=== PATIENT | male | born 1970 | race Caucasian/White ===

== ENCOUNTER 2021-09-14 06:01 | Inpatient (IN) ==
[2021-09-07 09:39] LABS: Basophils % 0.9 % (0.0-0.8); Eosinophils # 0.1 10*3/uL (0.0-0.87); Eosinophils % 2.1 % (0.00-10.9); Hematocrit 38.9 VOL% (42.0-52.0); Hemoglobin 13.5 GM/DL (14.0-18.0); Immature Granulocytes % 0.7 %; Immature Granulocytes Absolute 0.03 #; Lymphocytes # 0.8 10*3/uL (1.4-4.0); Lymphocytes % 18.5 % (21.2-54.2); Mean Corpuscular HGB Conc 34.7 GM/DL (32-36); Mean Corpuscular Volume 91.5 FL (87-102); Mean Platelet Volume 9.2 FL (9.6-12.0); Monocytes # 0.4 10*3/uL (0.11-0.8); Monocytes % 8.7 % (1.7-12.7); Neutrophils % 69.1 % (38.7-73.9); Platelet Count 235 T/CUMM (130-400); Red Blood Count 4.25 MC/CUMM (3.8-5.5); White Blood Count 4.4 T/CUMM (4-12)
[2021-09-07 10:01] LABS: Calcium 8.7 MG/DL (8.5-10.1); Osmolality,Calculated 280.3 MOS/KG (273-304); Potassium 4.1 MMOL/L (3.5-5.1)
[~2021-09-14 06:01] MED LIST: ALVIMOPAN 12 MG CAPSULE PO ONE; ERTAPENEM 1,000 MG in SODIUM CHLORIDE 0.9% 100 ML IV ONE
[2021-09-14] MEDS ORDERED: MIDAZOLAM 2 MG/2 ML VIAL ONE ×2 (06:24→06:28)
[2021-09-14] MEDS ORDERED: fentaNYL 100 MCG/2 ML VIAL ONE ×3 (06:25→10:35)
[2021-09-14] MEDS ORDERED: FAMOTIDINE 20 MG TABLET PO ONE (06:26)
[2021-09-14] MEDS ORDERED: ACETAMINOPHEN 500 MG TABLET PO ONE (06:26)
[2021-09-14] MEDS ORDERED: DIAZEPAM 5 MG TABLET PO ONE (06:26)
[2021-09-14] MEDS ORDERED: GABAPENTIN 400 MG CAPSULE PO ONE (06:26)
[2021-09-14] MEDS ORDERED: LIDOCAINE 2% 5 ML VIAL ONE (06:28)
[2021-09-14] MEDS ORDERED: ROCURONIUM 50 MG/5 ML VIAL IV ONE ×2 (06:28→08:16)
[2021-09-14] MEDS ORDERED: propofoL 200 MG/20 ML VIAL IV ONE (06:28)
[2021-09-14] MEDS ORDERED: LACTATED RINGERS 1,000 ML IV SCH (06:30)
[2021-09-14] MEDS ORDERED: LIDOCAINE 1%/EPI INJ 20 ML VIAL ONE (06:44)
[2021-09-14] MEDS ORDERED: INDOCYANINE GREEN 25 MG VIAL IV ONE (06:44)
[2021-09-14] MEDS ORDERED: BUPIVACAINE MPF 0.25% 10 ML VIAL ONE (06:44)
[2021-09-14] MEDS ORDERED: TISSUE ADHESIVE 1 EACH APPLICATOR TOP ONE (06:44)
[2021-09-14] MEDS ORDERED: SEVOFLURANE 1 UNIT/15 MINUTE INH ONE ×15 (07:13→11:15)
[2021-09-14] MEDS ORDERED: DEXAMETHASONE 4 MG/1 ML VIAL ONE (08:17)
[2021-09-14] MEDS ORDERED: ONDANSETRON 4 MG/2 ML VIAL ONE (08:17)
[2021-09-14] MEDS ORDERED: LACTATED RINGERS 1,000 ML IV ONE (08:26)
[2021-09-14] MEDS ORDERED: SUGAMMADEX 200 MG/2 ML VIAL IV ONE (10:01)
[2021-09-14 10:31] LABS: RBC,Urine 211 /HPF (0-4)
[2021-09-14 10:32] LABS: Bilirubin,Urine Negative (Negative); Blood, Urine Large mg/dL (Negative); Glucose,Urine (UA) Negative (Negative); Ketones,Urine Negative (Negative); Nitrite,Urine Negative (Negative); Protein,Urine Negative (Negative); Urine Appearance Clear (Clear); Urine Color LT. BLUE (Yellow); Urine Urobilinogen 0.2 eU/dL (<2.0); Urine pH 5.5 (4.5-8.0)
[2021-09-14] MEDS ORDERED: HYDROmorphone 1 MG/1 ML SYRINGE IV PRN ×2 (11:30→12:29)
[2021-09-14] MEDS ORDERED: ONDANSETRON 4 MG/2 ML VIAL IV PRN ×2 (11:32→12:29)
[2021-09-14 13:09] LABS: Basophils % 0.1 % (0.0-0.8); Eosinophils % 0.1 % (0.00-10.9); Hematocrit 38.3 VOL% (42.0-52.0); Hemoglobin 12.9 GM/DL (14.0-18.0); Immature Granulocytes % 0.7 %; Lymphocytes # 0.5 10*3/uL (1.4-4.0); Lymphocytes % 3.7 % (21.2-54.2); Mean Corpuscular HGB Conc 33.7 GM/DL (32-36); Mean Corpuscular Volume 93.6 FL (87-102); Mean Platelet Volume 9.3 FL (9.6-12.0); Monocytes # 0.4 10*3/uL (0.11-0.8); Monocytes % 2.6 % (1.7-12.7); Neutrophils % 92.8 % (38.7-73.9); Platelet Count 238 T/CUMM (130-400); Red Blood Count 4.09 MC/CUMM (3.8-5.5); Red Cell Distribution Width 14.6 % (9.3-17.3); White Blood Count 13.6 T/CUMM (4-12)
[2021-09-14 13:22] LABS: Calcium 8.4 MG/DL (8.5-10.1); Potassium 3.8 MMOL/L (3.5-5.1)
[2021-09-14] MEDS: LACTATED RINGERS 1,000 ML IV SCH ×2 (13:46→20:30)
[2021-09-14] MEDS: KETOROLAC 30 MG/1 ML VIAL IV SCH ×2 (13:46→18:32)
[2021-09-14 14:09] LABS: Platelet Estimate Normal; Polychromasia Slight; Total Cells Counted 100
[2021-09-14] MEDS: ALVIMOPAN 12 MG CAPSULE PO SCH (20:30)
[2021-09-15] MEDS: KETOROLAC 30 MG/1 ML VIAL IV SCH ×3 (00:25→14:07)
[2021-09-15 05:23] LABS: Basophils % 0.2 % (0.0-0.8); Eosinophils % 0.2 % (0.00-10.9); Hematocrit 35.2 VOL% (42.0-52.0); Hemoglobin 11.8 GM/DL (14.0-18.0); Immature Granulocytes % 0.4 %; Immature Granulocytes Absolute 0.03 #; Lymphocytes # 0.9 10*3/uL (1.4-4.0); Lymphocytes % 10.4 % (21.2-54.2); Mean Corpuscular HGB Conc 33.5 GM/DL (32-36); Mean Corpuscular Volume 93.4 FL (87-102); Mean Platelet Volume 9.3 FL (9.6-12.0); Monocytes # 0.7 10*3/uL (0.11-0.8); Monocytes % 7.6 % (1.7-12.7); Neutrophils % 81.2 % (38.7-73.9); Platelet Count 222 T/CUMM (130-400); Red Blood Count 3.77 MC/CUMM (3.8-5.5); Red Cell Distribution Width 14.5 % (9.3-17.3); White Blood Count 8.6 T/CUMM (4-12)
[2021-09-15 05:44] LABS: Calcium 8.3 MG/DL (8.5-10.1); Osmolality,Calculated 273.7 MOS/KG (273-304); Potassium 3.9 MMOL/L (3.5-5.1)
[2021-09-15] MEDS: LACTATED RINGERS 1,000 ML IV SCH (06:05)
[2021-09-15] MEDS ORDERED: ENOXAPARIN 40 MG/0.4 ML SYRINGE SUBCUT SCH (09:00)
[2021-09-15] MEDS: ALVIMOPAN 12 MG CAPSULE PO SCH (09:20)
[2021-09-15 14:30] VITALS: BP 129/70
== END 2021-09-15 15:29 | disposition home or self-care (01) | DRG 330 ==
LOC: N.OR 06:01 → N.SDSINP 06:03 → N.3E 12:39
PROVIDERS: ADMIT Surgery; ATTEND Surgery

== ENCOUNTER 2021-12-21 05:53 | Inpatient (IN) ==
[2021-12-17 12:40] LABS: Basophils # 0.1 10*3/uL (0.0-0.2); Basophils % 0.9 % (0.0-0.8); Eosinophils # 0.2 10*3/uL (0.0-0.87); Eosinophils % 2.6 % (0.00-10.9); Hematocrit 42.2 VOL% (42.0-52.0); Immature Granulocytes % 0.5 %; Immature Granulocytes Absolute 0.03 #; Lymphocytes # 1.2 10*3/uL (1.4-4.0); Lymphocytes % 21.5 % (21.2-54.2); Mean Corpuscular HGB Conc 33.2 GM/DL (32-36); Mean Corpuscular Volume 90.6 FL (87-102); Mean Platelet Volume 9.7 FL (9.6-12.0); Monocytes # 0.5 10*3/uL (0.11-0.8); Monocytes % 9.5 % (1.7-12.7); Platelet Count 286 T/CUMM (130-400); Red Blood Count 4.66 MC/CUMM (3.8-5.5); Red Cell Distribution Width 13.4 % (9.3-17.3); White Blood Count 5.7 T/CUMM (4-12)
[2021-12-17 13:02] LABS: Calcium 8.8 MG/DL (8.5-10.1); Osmolality,Calculated 280.3 MOS/KG (273-304); Potassium 4.7 MMOL/L (3.5-5.1)
[2021-12-21] MEDS ORDERED: CLINDAMYCIN INJ 600 MG/50 ML PREMIX IV ONE (06:00)
[2021-12-21] MEDS ORDERED: GABAPENTIN 400 MG CAPSULE PO ONE (06:38)
[2021-12-21] MEDS ORDERED: ACETAMINOPHEN 500 MG TABLET PO ONE (06:38)
[2021-12-21] MEDS ORDERED: FAMOTIDINE 20 MG TABLET PO ONE (06:38)
[2021-12-21] MEDS ORDERED: DIAZEPAM 5 MG TABLET PO ONE (06:38)
[2021-12-21] MEDS: LACTATED RINGERS 1,000 ML IV SCH ×5 (07:23→18:04)
[2021-12-21] MEDS ORDERED: LIDOCAINE 2% 5 ML VIAL ONE (08:02)
[2021-12-21] MEDS ORDERED: ONDANSETRON 4 MG/2 ML VIAL ONE (08:02)
[2021-12-21] MEDS ORDERED: ROCURONIUM 50 MG/5 ML VIAL IV ONE (08:02)
[2021-12-21] MEDS ORDERED: MIDAZOLAM 2 MG/2 ML VIAL ONE (08:02)
[2021-12-21] MEDS ORDERED: SEVOFLURANE 1 UNIT/15 MINUTE INH ONE ×3 (08:02→09:02)
[2021-12-21] MEDS ORDERED: propofoL 200 MG/20 ML VIAL IV ONE (08:02)
[2021-12-21] MEDS ORDERED: fentaNYL 100 MCG/2 ML VIAL ONE ×2 (08:02→08:55)
[2021-12-21] MEDS ORDERED: SODIUM CHLORIDE 0.9% 100 ML IV ONE (08:22)
[2021-12-21] MEDS ORDERED: PHENYLEPHRINE 10 MG/1 ML VIAL IV ONE (08:22)
[2021-12-21] MEDS ORDERED: LACTATED RINGERS 1,000 ML IV ONE (09:02)
[2021-12-21] MEDS ORDERED: SUGAMMADEX 200 MG/2 ML VIAL IV ONE (09:04)
[2021-12-21] MEDS ORDERED: DEXAMETHASONE 4 MG/1 ML VIAL ONE (09:22)
[2021-12-21] MEDS ORDERED: LIDOCAINE 100 MG/5 ML SYRINGE ONE (09:22)
[2021-12-21] MEDS ORDERED: ROPIVACAINE 0.5% 30 ML VIAL ONE (09:23)
[2021-12-21] MEDS ORDERED: ONDANSETRON 4 MG/2 ML VIAL IV PRN (10:41)
[2021-12-21] MEDS ORDERED: HYDROmorphone 1 MG/1 ML SYRINGE IV PRN (10:41)
[2021-12-21] MEDS ORDERED: PROMETHAZINE 25 MG/1 ML VIAL IM PRN (10:41)
[2021-12-21 11:00] LABS: Basophils # 0.1 10*3/uL (0.0-0.2); Basophils % 0.5 % (0.0-0.8); Eosinophils # 0.2 10*3/uL (0.0-0.87); Eosinophils % 1.9 % (0.00-10.9); Hematocrit 38.4 VOL% (42.0-52.0); Hemoglobin 13.1 GM/DL (14.0-18.0); Immature Granulocytes Absolute 0.09 #; Lymphocytes # 1.4 10*3/uL (1.4-4.0); Lymphocytes % 14.7 % (21.2-54.2); Mean Corpuscular HGB Conc 34.1 GM/DL (32-36); Mean Corpuscular Volume 88.3 FL (87-102); Mean Platelet Volume 8.8 FL (9.6-12.0); Monocytes # 0.6 10*3/uL (0.11-0.8); Monocytes % 6.1 % (1.7-12.7); Neutrophils % 75.8 % (38.7-73.9); Platelet Count 265 T/CUMM (130-400); Red Blood Count 4.35 MC/CUMM (3.8-5.5); Red Cell Distribution Width 13.2 % (9.3-17.3); White Blood Count 9.2 T/CUMM (4-12)
[2021-12-21] MEDS: KETOROLAC 15 MG/1 ML VIAL IV SCH ×3 (11:07→23:26)
[2021-12-21 11:19] LABS: Calcium 8.3 MG/DL (8.5-10.1); Osmolality,Calculated 281.4 MOS/KG (273-304); Potassium 3.7 MMOL/L (3.5-5.1)
[2021-12-22] MEDS: LACTATED RINGERS 1,000 ML IV SCH ×5 (00:45→19:30)
[2021-12-22 05:07] LABS: Basophils % 0.2 % (0.0-0.8); Eosinophils % 0.1 % (0.00-10.9); Hematocrit 34.5 VOL% (42.0-52.0); Hemoglobin 11.9 GM/DL (14.0-18.0); Immature Granulocytes % 0.5 %; Immature Granulocytes Absolute 0.07 #; Lymphocytes # 0.9 10*3/uL (1.4-4.0); Lymphocytes % 6.8 % (21.2-54.2); Mean Corpuscular HGB Conc 34.5 GM/DL (32-36); Mean Corpuscular Volume 88.9 FL (87-102); Mean Platelet Volume 9.3 FL (9.6-12.0); Monocytes # 0.8 10*3/uL (0.11-0.8); Monocytes % 6.1 % (1.7-12.7); Neutrophils % 86.3 % (38.7-73.9); Platelet Count 244 T/CUMM (130-400); Red Blood Count 3.88 MC/CUMM (3.8-5.5); Red Cell Distribution Width 13.2 % (9.3-17.3); White Blood Count 13.3 T/CUMM (4-12)
[2021-12-22 05:27] LABS: Calcium 8.7 MG/DL (8.5-10.1); Osmolality,Calculated 277.5 MOS/KG (273-304); Potassium 4.2 MMOL/L (3.5-5.1)
[2021-12-22] MEDS: KETOROLAC 15 MG/1 ML VIAL IV SCH ×4 (05:39→23:02)
[2021-12-22] MEDS: ENOXAPARIN 40 MG/0.4 ML SYRINGE SUBCUT SCH (05:39)
[2021-12-22] MEDS ORDERED: SIMETHICONE CHEW 80 MG TABLET PO PRN (08:36)
[2021-12-22 17:25] LABS: Hematocrit 34.7 VOL% (42.0-52.0); Hemoglobin 11.6 GM/DL (14.0-18.0)
[2021-12-22] MEDS ORDERED: ACETAMINOPHEN 325 MG/10.15 ML UDCUP PO PRN (18:39)
[2021-12-22] MEDS ORDERED: ACETAMINOPHEN 325 MG TABLET PO PRN (18:47)
[2021-12-23] MEDS: LACTATED RINGERS 1,000 ML IV SCH (05:10)
[2021-12-23] MEDS: KETOROLAC 15 MG/1 ML VIAL IV SCH ×4 (05:11→22:01)
[2021-12-23] MEDS: ENOXAPARIN 40 MG/0.4 ML SYRINGE SUBCUT SCH (05:11)
[2021-12-23 09:18] LABS: Basophils % 0.3 % (0.0-0.8); Eosinophils # 0.1 10*3/uL (0.0-0.87); Eosinophils % 0.7 % (0.00-10.9); Hematocrit 36.8 VOL% (42.0-52.0); Hemoglobin 12.2 GM/DL (14.0-18.0); Immature Granulocytes % 0.3 %; Immature Granulocytes Absolute 0.03 #; Lymphocytes # 0.9 10*3/uL (1.4-4.0); Lymphocytes % 8.7 % (21.2-54.2); Mean Corpuscular HGB Conc 33.2 GM/DL (32-36); Mean Corpuscular Volume 90.2 FL (87-102); Monocytes # 1.1 10*3/uL (0.11-0.8); Monocytes % 10.8 % (1.7-12.7); Neutrophils % 79.2 % (38.7-73.9); Platelet Count 254 T/CUMM (130-400); Red Blood Count 4.08 MC/CUMM (3.8-5.5); Red Cell Distribution Width 13.6 % (9.3-17.3); White Blood Count 10.2 T/CUMM (4-12)
[2021-12-23 09:32] LABS: Calcium 8.6 MG/DL (8.5-10.1); Osmolality,Calculated 275.7 MOS/KG (273-304); Potassium 3.6 MMOL/L (3.5-5.1)
[2021-12-23 09:45] LABS: Band Neutrophils 7 % (0-10); Lymphocytes 9 % (20-55); Platelet Estimate Adequate; Total Cells Counted 100
[2021-12-23] MEDS ORDERED: ZOLPIDEM 5 MG TABLET PO ONE (21:18)
[2021-12-24 04:53] LABS: Basophils % 0.3 % (0.0-0.8); Eosinophils # 0.1 10*3/uL (0.0-0.87); Eosinophils % 1.1 % (0.00-10.9); Hematocrit 39.1 VOL% (42.0-52.0); Hemoglobin 13.2 GM/DL (14.0-18.0); Immature Granulocytes % 0.5 %; Immature Granulocytes Absolute 0.05 #; Lymphocytes # 1.1 10*3/uL (1.4-4.0); Lymphocytes % 12.5 % (21.2-54.2); Mean Corpuscular HGB Conc 33.8 GM/DL (32-36); Mean Corpuscular Volume 88.3 FL (87-102); Mean Platelet Volume 9.5 FL (9.6-12.0); Monocytes # 1.2 10*3/uL (0.11-0.8); Monocytes % 13.1 % (1.7-12.7); Neutrophils % 72.5 % (38.7-73.9); Platelet Count 308 T/CUMM (130-400); Red Blood Count 4.43 MC/CUMM (3.8-5.5); Red Cell Distribution Width 13.3 % (9.3-17.3); White Blood Count 9.1 T/CUMM (4-12)
[2021-12-24 05:24] LABS: Calcium 8.9 MG/DL (8.5-10.1); Potassium 3.4 MMOL/L (3.5-5.1)
[2021-12-24 05:41] LABS: Band Neutrophils 8 % (0-10); Eosinophils 2 % (0-10); Lymphocytes 9 % (20-55); Microcytosis Slight; Platelet Estimate Normal; Total Cells Counted 100
[2021-12-24] MEDS: ENOXAPARIN 40 MG/0.4 ML SYRINGE SUBCUT SCH (06:15)
[2021-12-24] MEDS: KETOROLAC 15 MG/1 ML VIAL IV SCH (06:18)
[2021-12-24] MEDS: DEXT 5% NACL 0.45% KCL 40 MEQ 40 MEQ/1,000 ML BAG IV SCH (15:18)
[2021-12-24] MEDS ORDERED: ZOLPIDEM 5 MG TABLET PO ONE (23:23)
[2021-12-25] MEDS: ENOXAPARIN 40 MG/0.4 ML SYRINGE SUBCUT SCH (05:09)
[2021-12-25] MEDS: DEXT 5% NACL 0.45% KCL 40 MEQ 40 MEQ/1,000 ML BAG IV SCH ×2 (06:00→17:07)
[2021-12-25 07:53] LABS: Basophils % 0.4 % (0.0-0.8); Eosinophils # 0.2 10*3/uL (0.0-0.87); Eosinophils % 2.1 % (0.00-10.9); Hematocrit 33.1 VOL% (42.0-52.0); Hemoglobin 11.3 GM/DL (14.0-18.0); Immature Granulocytes % 0.9 %; Immature Granulocytes Absolute 0.07 #; Lymphocytes # 1.1 10*3/uL (1.4-4.0); Lymphocytes % 14.2 % (21.2-54.2); Mean Corpuscular HGB Conc 34.1 GM/DL (32-36); Mean Corpuscular Volume 87.8 FL (87-102); Mean Platelet Volume 8.9 FL (9.6-12.0); Monocytes % 12.6 % (1.7-12.7); Neutrophils % 69.8 % (38.7-73.9); Platelet Count 293 T/CUMM (130-400); Red Blood Count 3.77 MC/CUMM (3.8-5.5); Red Cell Distribution Width 13.4 % (9.3-17.3); White Blood Count 7.5 T/CUMM (4-12)
[2021-12-25 08:08] LABS: Calcium 8.1 MG/DL (8.5-10.1); Potassium 3.5 MMOL/L (3.5-5.1)
[2021-12-25 08:15] LABS: Eosinophils 4 % (0-10); Lymphocytes 17 % (20-55); Platelet Estimate Adequate; Total Cells Counted 100
[2021-12-25 08:16] LABS: Hypochromia Slight; Microcytosis Slight
[2021-12-25] MEDS: ZOLPIDEM 5 MG TABLET PO PRN (22:49)
[2021-12-26 04:41] LABS: Basophils % 0.5 % (0.0-0.8); Eosinophils # 0.2 10*3/uL (0.0-0.87); Eosinophils % 2.9 % (0.00-10.9); Hematocrit 30.1 VOL% (42.0-52.0); Hemoglobin 10.4 GM/DL (14.0-18.0); Immature Granulocytes % 2.3 %; Immature Granulocytes Absolute 0.17 #; Lymphocytes # 0.9 10*3/uL (1.4-4.0); Lymphocytes % 11.6 % (21.2-54.2); Mean Corpuscular HGB Conc 34.6 GM/DL (32-36); Mean Corpuscular Volume 87.2 FL (87-102); Mean Platelet Volume 9.2 FL (9.6-12.0); Monocytes # 0.9 10*3/uL (0.11-0.8); Monocytes % 12.5 % (1.7-12.7); Neutrophils % 70.2 % (38.7-73.9); Platelet Count 265 T/CUMM (130-400); Red Blood Count 3.45 MC/CUMM (3.8-5.5); Red Cell Distribution Width 13.2 % (9.3-17.3); White Blood Count 7.3 T/CUMM (4-12)
[2021-12-26 05:04] LABS: Calcium 8.4 MG/DL (8.5-10.1); Osmolality,Calculated 267.1 MOS/KG (273-304); Potassium 3.2 MMOL/L (3.5-5.1)
[2021-12-26] MEDS: ENOXAPARIN 40 MG/0.4 ML SYRINGE SUBCUT SCH (06:18)
[2021-12-26] MEDS: DEXT 5% NACL 0.45% KCL 40 MEQ 40 MEQ/1,000 ML BAG IV SCH ×2 (09:09→17:47)
[2021-12-26] MEDS: ZOLPIDEM 5 MG TABLET PO PRN (21:19)
[2021-12-27] MEDS: ENOXAPARIN 40 MG/0.4 ML SYRINGE SUBCUT SCH (05:45)
[2021-12-27 07:17] VITALS: BP 138/83
== END 2021-12-27 10:22 | disposition home or self-care (01) | DRG 330 ==
LOC: N.SDSINP 05:53 → N.3E 10:30
PROVIDERS: ADMIT Surgery; ATTEND Surgery